=== PATIENT | female | born 1960 | race Caucasian/White ===

== ENCOUNTER 2023-04-07 10:23 | Emergency (ER) | payer BC, SELFPAY ==
--- NOTE | ~2023-04-07 | CT_ITS ---
EXAMINATION: CT HEAD WITHOUT CONTRAST CLINICAL INFORMATION: 62-year-old female with dizziness COMPARISON: None available. TECHNIQUE: Contiguous axial imaging was performed from the skull base to vertex without intravenous administration of contrast. This CT examination was performed using dose optimization techniques as appropriate, variously including the following: *Automated exposure control *Adjustment of mA and/or kV according to patient size (this includes techniques or standardized protocols for targeted exams where dose is matched to indication/reason for exam; i.e. extremities or head) *Use of iterative reconstruction technique DLP: 544 mGy-cm FINDINGS: TECHNIQUE: CT imaging of the head was performed without contrast material. FINDINGS: Unenhanced examination demonstrates the cortical sulci and ventricular system to be appropriate in size and morphology for the patient's age. No focal area of abnormal attenuation within the brain parenchyma is appreciated. No mass effect, midline shift, or intracranial hemorrhage is seen. No abnormal extra-axial fluid collection is noted. The incidentally visualized portions of the orbits and paranasal sinuses appear unremarkable. CT/CT head/brain wo IV con IMPRESSION: Normal examination.
[2023-04-07 10:27] VITALS: BP 154/93; PULSE 89; RESP 18; TEMP 37.1; O2SAT 96; BMI 25.0
--- NOTE | 2023-04-07 10:40 | ECG_ITS ---
Test Reason : dizzy Blood Pressure : / mmHG Vent. Rate : 077 BPM Atrial Rate : 077 BPM P-R Int : 198 ms QRS Dur : 056 ms QT Int : 362 ms P-R-T Axes : 078 004 024 degrees QTc Int : 409 ms Normal sinus rhythm Low voltage QRS Nonspecific T wave abnormality Abnormal ECG No previous ECGs available Referred By: Generic ED Physician Electronically Signed By:HARVEY BELTRAN
[2023-04-07 11:01] LABS: MANUAL DIFF FLAG NO
[2023-04-07 11:04] LABS: Basophils Absolute Auto 0.1 X10*3/uL (0.0-0.2); Basophils Percent Auto 0.7 % (0-2); Eosinophils Absolute Auto 0.1 X10*3/uL (0.0-0.4); Eosinophils Percent Auto 1.6 % (0-4); Hematocrit 42.2 % (37.0-47.0); Hemoglobin 14.5 g/dl (12.0-16.0); Imm Gran Abs Auto 0.01 X10*3/uL (0.00-0.03); Imm Gran Pct Auto 0.1 % (0.0-0.4); Lymphocytes Absolute Auto 1.4 X10*3/uL (1.2-4.9); Lymphocytes Percent Auto 18.5 % (20-40); Mean Corpuscular HGB Conc 34.4 g/dl (31.0-35.0); Mean Corpuscular Hemoglobin 31.9 pg (27.0-33.0); Mean Platelet Volume 9.4 fL (9.4-12.3); Monocytes Absolute Auto 0.7 X10*3/uL (0.1-1.2); Monocytes Percent Auto 8.6 % (2-11); Neutrophils Absolute Auto 5.3 x10*3/uL (2.0-8.3); Neutrophils Percent Auto 70.5 % (45-73); Platelet Count 295 X10*3/uL (160-400); Red Blood Count 4.54 X10*6/uL (4.20-5.50); Red Cell Distribution Width 13.2 % (11.0-16.0); White Blood Count 7.6 X10*3/uL (4.8-10.8)
--- NOTE | 2023-04-07 11:05 | ED_ITS ---
HPI - Dizziness General Chief Complaint: Dizziness Stated Complaint: dizzy, off balance Time Seen by Provider: 04/07/23 10:59 Source: patient Mode of arrival: ambulatory Limitations: no limitations History of Present Illness HPI Narrative: This is a 62-year-old female with no significant medical history presenting to the emergency department with complaints of dizziness/feeling off balance since last night after dinner. Patient reports that this dizziness is worse with positional changes and is making her ambulation very difficult, she feels like she is walking on an escalator and the room is spinning . Patient has also been having some left ear discomfort and tinnitus. She denies headache, vision changes, weakness, nausea, vomiting, abdominal pain, trauma to head or neck, chest pain, shortness of breath, fevers, chills or recent illness. Related Data Previous Rx's Medication Instructions Recorded meclizine 25 mg tablet 25 mg PO DAILY PRN dizziness #14 04/07/23 tabs Allergies Allergy/AdvReac Type Severity Reaction Status Date / Time azithromycin Allergy Vomiting Verified 04/07/23 10:31 latex Allergy Rash Verified 04/07/23 10:31 peanut Allergy Swelling Verified 04/07/23 10:31 strawberry Allergy Hives Verified 04/07/23 10:31 Sulfa (Sulfonamide Allergy Vomiting Verified 04/07/23 10:31 Antibiotics) grains Allergy Swelling Uncoded 04/07/23 10:31 Review of Systems 2 Review of Systems: Yes all other systems are reviewed and are negative [facility] Past Medical History Attestation statement: The following information was validated with the patient. Source: old records reviewed and nursing notes reviewed Social History Social History Advance Directives: No Advance Directives Information Provided: Yes Physical Exam 2 Vital Signs: Vital Signs: Last Vital Signs Temp 97.8 F 04/07/23 12:58 Pulse 61 04/07/23 12:58 Resp 16 04/07/23 12:58 BP 130/75 04/07/23 12:58 Pulse Ox 98 04/07/23 12:58 O2 Del Method Room Air 04/07/23 12:58 BMI result Body Mass Index 25.0 vss Appearance: Alert.? Oriented X3.? No acute distress.? Head: Normocephalic, atraumatic, no step-offs or deformities Eyes: Pupils equal, round and reactive to light.? Rapid head movements to the left and right cause horizontal nystagmus ENT: Pharynx normal.? Bilateral tympanic membranes and ear canal within normal limits. No mastoid tenderness. No pain with manipulation of external ear bilaterally. Neck: Normal inspection.? Neck supple.? CVS: Normal heart rate and rhythm.? Pulses normal.? Respiratory: No respiratory distress.? Breath sounds normal.? Abdomen: Soft and nontender.? Skin: Skin warm and dry.? Normal skin color.? Normal skin turgor.? Extremities: No lower extremity edema.? No calf ttp. 5/5 strength to bilateral upper and lower extremities. Normal hand entry level paralegal. Neuro: Oriented X 3.? No motor deficit.? No sensory deficit. CN 2-12 intact . Normal zoypea-pa-rjmc, ydmk-oh-rvfs steady tandem gait normal coordination. Negative Romberg and pronator drift. NIH stroke scale 0 Course Reevaluation(s) Reevaluation #1: CBC no acute findings. Chemistry unremarkable. Troponin negative, EKG nonischemic. Head scan pending. Time: 11:34 Reevaluation #2: Head CT unremarkable. Patient feeling much better after IV fluids, meclizine. Ambulating with steady gait normal coordination. Repeat neurological assessment nonfocal. At this time patient to be discharged home will send her home with meclizine Educated patient on diagnosis and treatment plan, answered all question, patient verbalizes understanding. At this time patient will be discharged home, advised to return with new or worsening symptoms. Educated on worrisome signs and symptoms and when to return. At this time I feel comfortable discharge home. Time: 14:46 Medications Administered Discontinued Medications Generic Name Dose Route Start Last Admin Trade Name Freq PRN Reason Stop Dose Admin Sodium Chloride 1,000 mls @ 999 mls/hr 04/07/23 11:15 04/07/23 12:26 Ns IV 04/07/23 12:15 Infused .Q1H1M KASSI Infusion Meclizine HCl 25 mg 04/07/23 11:04 04/07/23 11:22 Meclizine Hcl 25 Mg Tablet PO 04/07/23 11:05 25 mg ONCE ONE Administration Medical Decision Making Medical Decision Making MDM Narrative: 62-year-old female presents for evaluation of feeling off balance and disease since yesterday night. This has never happened to her before. Also having some left ear discomfort and tinnitus. On physical exam head movements do cause horizontal nystagmus bilaterally. No vertical nystagmus noted. Neuro nonfocal cerebellar intact. History and physical exam concerning for BPPV versus vertigo vs meniers disease . No focal deficits no visual disturbances no nausea, vomiting, unlikely posterior stroke. Will rule out metabolic derangements. No signs of otitis media, otitis externa mastoiditis. No signs of meningitis or encephalitis [place]-Hallpike maneuver positive with horizontal nystagmus The Zhou maneuver was performed with patient consent. Patient tolerated procedure well. Now sitting upright. Plan labs, imaging of head as she has no history of this. Differential Diagnosis Differential Diagnoses: The differential diagnosis associated with the presentation includes History and physical exam concerning for BPPV versus vertigo meniers disease .. No focal deficits no visual disturbances no nausea, vomiting, unlikely posterior stroke. Will rule out metabolic derangements. No signs of otitis media, otitis externa mastoiditis. No signs of meningitis or encephalitis Admission/Observation Consideration of admission/observation: Escalation of care including admission/observation considered Unlikely Lab Data MDM Lab Attestation statement: I reviewed the patient's lab results. 04/07/23 10:47 04/07/23 10:52 Labs: Lab Results 04/07/23 04/07/23 Range/Units 10:47 10:52 WBC 7.6 (4.8-10.8) X10*3/uL RBC 4.54 (4.20-5.50) X10*6/uL Hgb 14.5 (12.0-16.0) g/dl Hct 42.2 (37.0-47.0) % MCV 93.0 (80.0-98.0) fL MCH 31.9 (27.0-33.0) pg MCHC 34.4 (31.0-35.0) g/dl RDW 13.2 (11.0-16.0) % Plt Count 295 (160-400) X10*3/uL MPV 9.4 (9.4-12.3) fL Immature Gran % (Auto) 0.1 (0.0-0.4) % Neut % (Auto) 70.5 (45-73) % Lymph % (Auto) 18.5 L (20-40) % [place] % (Auto) 8.6 (2-11) % Eos % (Auto) 1.6 (0-4) % Baso % (Auto) 0.7 (0-2) % Lymph # (Auto) 1.4 (1.2-4.9) X10*3/uL [place] # (Auto) 0.7 (0.1-1.2) X10*3/uL Eos # (Auto) 0.1 (0.0-0.4) X10*3/uL Baso # (Auto) 0.1 (0.0-0.2) X10*3/uL Abs Immat Gran (auto) 0.01 (0.00-0.03) X10*3/uL Absolute Neuts (auto) 5.3 (2.0-8.3) x10*3/uL Absolute Nucleated RBC 0.000 (0.0-0.012) X10*3/uL Nucleated RBC % (auto) 0.0 (0.0-0.2) /100WBC APTT 29.8 (26.0-36.8) SEC Sodium 140 (135-145) mmol/L Potassium 3.5 (3.3-5.1) mmol/L Chloride 106 (96-108) mmol/L Carbon Dioxide 28 (22-29) mmol/L Anion Gap 10 L (12-20) BUN 13 (9-16) mg/dL Creatinine 0.81 (0.5-1.4) mg/dL Estim Creat Clear Calc 64.0 Estimated GFR > 60 Random Glucose 131 H (60-115) mg/dL Calcium 9.7 (8.4-10.2) mg/dL Total Bilirubin 0.5 (0.0-1.0) mg/dL AST 26 (5-31) U/L ALT 16 (0-31) U/L Alkaline Phosphatase 86 (39-117) U/L Troponin I High Sens < 2.7 (<3.5-17.0) ng/L Total Protein 7.4 (6.5-8.0) g/dL Albumin 4.2 (3.5-5.0) g/dL Independent Interpretation I performed an independent interpretation of an: EKG (Vent. Rate : 077 BPM Atrial Rate : 077 BPM P-R Int : 198 ms QRS Dur : 056 ms QT Int : 362 ms P-R-T Axes : 078 004 024 degrees QTc Int : 409 ms Normal sinus rhythm Low voltage QRS Nonspecific T wave abnormality Abnormal ECG No previous ECGs available ) and CT Scan Radiology Impression Discussion of test interpretation with radiology: I have reviewed the radiologist's reading. Tests considered The following testing was considered but not selected: Considered MRI however negative NIH stroke scale cerebellar function intact. History and physical exam most consistent with BPPV unlikely posterior stroke patient without significant risk factors as well. Prescription Management I considered prescription management with: Other (Meclizine) Discharge Plan Discharge Clinical Impression: Benign paroxysmal positional vertigo Patient Disposition: Home, Self-Care Instructions: Vertigo (ED), Benign Paroxysmal Positional Vertigo (ED) Additional Instructions: Take your medications as prescribed. If you were prescribed antibiotics today, it is important that you take your medication to their entirety, do not skip any doses, do not finish them early. Follow-up with your primary care provider this week. Return to the emergency department with new or worsening symptoms. Such as fevers, chills, chest pain, shortness of breath, nausea, vomiting, dizziness, headache, vision changes, lethargy In case of emergency call 911 If symptoms do not improve you should follow-up with your PCP might need vestibular rehab. Your history and physical exam are concerning for vertigo and possible Meniere's disease. CT/CT head/brain wo IV con IMPRESSION: Normal examination. Prescriptions: New meclizine 25 mg tablet 25 mg PO DAILY PRN (Reason: dizziness) Qty: 14 0RF Referrals: Physician,Unknown J [Primary Care Provider] - 2 days Stand Alone Forms: Work/School Release
[2023-04-07 11:15] LABS: Partial Thromboplastin Time 29.8 SEC (26.0-36.8)
[2023-04-07 11:19] LABS: Alanine Aminotransferase 16 U/L (0-31); Albumin Level 4.2 g/dL (3.5-5.0); Alkaline Phosphatase 86 U/L (39-117); Anion Gap 10 (12-20); Aspartate Amino Transferase 26 U/L (5-31); Bilirubin Total 0.5 mg/dL (0.0-1.0); Blood Urea Nitrogen 13 mg/dL (9-16); Calcium 9.7 mg/dL (8.4-10.2); Carbon Dioxide 28 mmol/L (22-29); Chloride 106 mmol/L (96-108); Estimated Glomerular Filt Rate > 60; Glucose Random 131 mg/dL (60-115); Potassium 3.5 mmol/L (3.3-5.1); Sodium 140 mmol/L (135-145); Total Protein 7.4 g/dL (6.5-8.0)
[2023-04-07] MEDS: 0.9 % Sodium Chloride 1,000 ML 999 ML IV (11:22)
[2023-04-07] MEDS: Meclizine HCl 25 MG TABLET PO (11:22)
[2023-04-07 11:27] LABS: Troponin-I High Sensitivity < 2.7 ng/L (<3.5-17.0)
[2023-04-07 12:58] VITALS: BP 130/75; PULSE 61; RESP 16; TEMP 36.6; O2SAT 98
[2023-04-07 15:03] VITALS: BP 162/87; PULSE 70; RESP 18; TEMP 36.9; O2SAT 98
== END 2023-04-07 15:09 | disposition home or self-care (01) ==
PROVIDERS: Emergency Provider Emergency Medicine Emergency Medical Services
DX: H81.10 Benign paroxysmal vertigo, unspecified ear (principal)
CPT/HCPCS: 36415; 70450; 80053; 84484; 85025; 85730; 93005; 96360; 99284

== ENCOUNTER → 2023-04-07 10:40 | Outpatient (BNV) | payer BC, SELFPAY | PROVIDERS: Emergency Provider Emergency Medicine Emergency Medical Services; Visit Provider Internal Medicine | DX: R94.31 Abnormal electrocardiogram [ECG] [EKG] (principal) | CPT/HCPCS: 93010 ==

== ENCOUNTER 2023-11-24 12:21 | Outpatient (REF) | payer BC, SELFPAY ==
--- NOTE | ~2023-11-24 | CT_ITS ---
EXAMINATION: CT ABDOMEN AND PELVIS WITH CONTRAST CLINICAL INFORMATION: Abdominal pain COMPARISON: None available. TECHNIQUE: Multidetector volumetric images were obtained from the superior aspect of the liver through the pubic symphysis following administration 85 mL of Omnipaque 350 intravenous contrast. Sagittal and coronal reformatted images were obtained on the technologist's workstation. Oral contrast: Yes This CT examination was performed using dose optimization techniques as appropriate, variously including the following: *Automated exposure control *Adjustment of mA and/or kV according to patient size (this includes techniques or standardized protocols for targeted exams where dose is matched to indication/reason for exam; i.e. extremities or head) *Use of iterative reconstruction technique DLP: 283 mGy-cm FINDINGS: LUNG BASES: Bibasilar atelectasis. LIVER, GALLBLADDER, AND BILIARY TREE: The liver is normal in size, shape, and attenuation. No focal hepatic lesion or biliary ductal dilatation is present. The gallbladder is unremarkable with no evidence of radiopaque gallstones, gallbladder wall thickening, or obvious pericholecystic inflammatory changes. PANCREAS: There is an elongated region of hypoattenuation in the posterior aspect of the pancreatic head approximately 2.1 x 0.5 cm of uncertain etiology, possibly a dilated duct side branch or cystic lesion. The ducts and pancreas appear otherwise normal. SPLEEN: Unremarkable. ADRENAL GLANDS: Unremarkable. KIDNEYS AND URETERS: There is a 1.1 cm round, smooth hypodensity in the anterior midpole of the left kidney most likely representing a cyst although is measures greater than simple fluid density. The kidneys appear otherwise normal. No hydronephrosis or stones. BLADDER: Unremarkable. GASTROINTESTINAL TRACT: Sigmoid diverticulosis. No focal inflammatory process or obstruction. Normal appendix. ABDOMINAL WALL: No significant hernia is appreciated. LYMPH NODES: Normal. VASCULAR: Mild scattered atherosclerotic calcifications. PELVIC VISCERA: Unremarkable. OSSEOUS STRUCTURES: Unremarkable. CT/CT abdomen pelvis w IV con IMPRESSION: 1. No focal inflammatory process or obstruction. 2. Sigmoid diverticulosis. 3. There is a 2.1 x 0.5 cm elongated region of hypoattenuation in the posterior aspect of the pancreatic head of uncertain etiology, possibly a dilated duct side branch or cystic lesion. This could be further evaluated with MRI/MRCP. 4. There is a 1.1 cm round hypodensity in the anterior midpole of the left kidney most likely representing a cyst although measures greater than simple fluid density. This could be confirmed with ultrasound, or the pancreas MRI/MRCP. Fleischner guidelines were followed. Electronically signed by: David Camp MD 11/26/2023 10:03 AM EDT RP
[2023-11-24] MEDS: Barium Sulfate Oral (Berry) 450 ML ORAL.SUSP 900 ML PO (14:55)
[2023-11-24] MEDS: iohexoL 350 MG/ML 100 ML INFUS..BTL IV (14:56)
[2023-11-27 09:09] LABS: Creatinine POC 0.7 mg/dL (0.5-1.4); GFR POC 60
== END 2023-11-24 12:22 | disposition home or self-care (01) ==
LOC: HO.CT 12:21
PROVIDERS: PCP Nurse Practitioner Family; Visit Provider Nurse Practitioner Adult Health
DX: R10.9 Unspecified abdominal pain (principal)
CPT/HCPCS: 74177; 82565; Q9967

== ENCOUNTER 2023-12-29 08:25 | Outpatient (REF) | payer BC, SELFPAY ==
[2023-12-29] MEDS: gadobutroL 7.5 ML VIAL IVPUSH (09:30)
== END 2023-12-29 08:26 | disposition home or self-care (01) ==
LOC: HO.MRI 08:25
PROVIDERS: PCP Nurse Practitioner Family; Visit Provider Nurse Practitioner Adult Health
DX: N28.1 Cyst of kidney, acquired (principal)
CPT/HCPCS: 74183; A9585

== ENCOUNTER 2024-04-25 07:40 | Emergency (ER) | payer BC, MEDICARE, SELFPAY ==
--- NOTE | ~2024-04-25 | XR_ITS ---
EXAMINATION: XR CHEST CLINICAL INFORMATION: dyspnea COMPARISON: November 23, 2010 is not available on PACS. TECHNIQUE: Frontal view of the chest was obtained. FINDINGS: Pulmonary reticular pattern. Hyperinflated lungs. Bilateral apical lung scarring. Linear and patchy opacity left lower hemithorax. Probable skin fold in the periphery of the left hemithorax. No pleural effusion. Cardiomediastinal silhouette size is normal. Calcified plaque thoracic aortic arch. Mild to moderate S-shaped curvature of the thoracolumbar spine. XR/XR chest 1V IMPRESSION: Chronic interstitial lung disease. Superimposed acute small airway disease in the lingula/left lower lung lobe should be considered in the correct clinical settings. Electronically signed by: Nagi Stokes MD 04/25/2024 08:12 AM EDT
--- NOTE | ~2024-04-25 | CT_ITS ---
EXAMINATION: CT ANGIOGRAM CHEST CLINICAL INFORMATION: Chest pain. Shortness of breath. Elevated d-dimer. Palpitations. COMPARISON: None available. TECHNIQUE: Multiple axial images were obtained through the chest after the administration of 65 mL of Omnipaque 350 intravenous contrast. Extensive vascular post-processing including two-dimensional and three-dimensional reformatted images were created and reviewed on an independent workstation. SmartPrep technique. This CT examination was performed using dose optimization techniques as appropriate, variously including the following: *Automated exposure control *Adjustment of mA and/or kV according to patient size (this includes techniques or standardized protocols for targeted exams where dose is matched to indication/reason for exam; i.e. extremities or head) *Use of iterative reconstruction technique. DLP: 210 mGy centimeter. FINDINGS: The main pulmonary arteries are patent without intraluminal filling defects. Thoracic aorta demonstrates normal caliber and enhancement pattern without intimal flap or focal stenosis. Bilateral apical lung scarring. Focal saccular bronchiectasis in the lingula. Minimal honeycombing in the peripheral lower lung lobes. Patchy and linear attenuation seen in the lower lung lobes, lingula and to a lesser extent right middle lung lobe. There is a 3 mm noncalcified pulmonary nodule in the right middle lung lobe and left lower lung lobe. No pleural effusion. No pneumothorax. Prominent nonspecific mediastinal lymph nodes. No pericardial effusion. There is a pectus excavatum. No dominant nodules in the thyroid gland. There is spondylosis at T11-T12 with mild reverse curvature. No acute fracture or listhesis. No acute rib fractures. The sternum is intact. The scapula is intact bilaterally. CT/CT angio chest PE protocol IMPRESSION: No acute pulmonary artery emboli. No aneurysm or dissection, thoracic aorta. Chronic interstitial lung disease with questionable superimposed acute inflammatory versus infectious processes. Nonspecific 3 mm noncalcified pulmonary nodule, right middle lobe and left lower lung lobe. Fleischner guidelines were followed. Electronically signed by: Nagi Stokes MD 04/25/2024 10:20 AM EDT
--- NOTE | 2024-04-25 07:42 | ECG_ITS ---
Test Reason : RAPID HEART RATE Blood Pressure : */* mmHG Vent. Rate : 83 BPM Atrial Rate : 83 BPM P-R Int : 210 ms QRS Dur : 48 ms QT Int : 340 ms P-R-T Axes : 70 7 38 degrees QTcB Int : 399 ms Sinus rhythm with 1st degree A-V block Possible Left atrial enlargement Cannot rule out Anterior infarct , age undetermined Abnormal ECG When compared with ECG of 07-Apr-2023 10:47, Nonspecific T wave abnormality no longer evident in Anterior leads Referred By: Generic ED Physician Electronically Signed By: Contreras Wilkerson
[2024-04-25 07:52] VITALS: BP 150/79; PULSE 84; RESP 16; TEMP 36.8; O2SAT 99; BMI 23.6
--- NOTE | 2024-04-25 08:01 | ED_ITS ---
HPI - Arrhythmia/Palpitations General Chief Complaint: Arrhythmia/Palpitations Stated Complaint: rapid heart beat Time Seen by Provider: 04/25/24 07:49 Source: patient and old records reviewed Mode of arrival: ambulatory Limitations: no limitations History of Present Illness ED Provider: VENTURA LAMB narrative: 64 yo female with PMH of recurrent UTI, hypothyroidism, HLD recent UTI on macrobid but feels like it isn't helping. This AM was getting ready for work when she felt her heart racing and felt a little short of breath, upset stomach. She had no chest pain. She denies recent travel/procedures. She has not had n/v. She feels better on arrival now. She was not able to check her pulse when it was happening. She is on atenolol complaint: rapid heart beat, heart racing and palpitations Onset (ago): hour(s) (1) Duration: now resolved Severity: moderate Context: occurred during rest Associated symptoms: shortness of breath and nausea Related Data Previous Rx's ?Medication ?Instructions ?Recorded meclizine 25 mg tablet 25 mg PO DAILY PRN dizziness #14 04/07/23 tabs cefuroxime axetil 250 mg tablet 250 mg PO BID 5 days #10 tabs 04/25/24 Allergies Allergy/AdvReac Type Severity Reaction Status Date / Time azithromycin Allergy Vomiting Verified 04/25/24 07:53 latex Allergy Rash Verified 04/25/24 07:53 peanut Allergy Swelling Verified 04/25/24 07:53 strawberry Allergy Hives Verified 04/25/24 07:53 Sulfa (Sulfonamide Allergy Vomiting Verified 04/25/24 07:53 Antibiotics) grains Allergy Swelling Uncoded 04/07/23 10:31 Review of Systems 2 Review of Systems: Constitutional : No Fever, No Chills ENT/Mouth : No sore throat, No Rhinorrhea, No Swallowing Difficulty Eyes: No Eye Pain, No Swelling, No Redness Cardiovascular : No Chest Pain, positive SOB, No Orthopnea, noEdema Respiratory : No Cough, No Sputum, No Wheezing, positive dyspnea Gastrointestinal : pos Nausea, No Vomiting, No Diarrhea, pos abdominal Pain, No Hematochezia, No Melena Genitourinary : No Dysuria, No Urinary Frequency, No Hematuria Musculoskeletal : No joint pain, No Myalgias Skin : No Skin Lesions, No rash Neuro : No Weakness, No Numbness, No Dizziness, No Headache All other systems reviewed and are negative [facility] Past Medical History Attestation statement: The following information was validated with the patient. Source: old records reviewed Medical History Hypothyroidism Hyperlipidemia UTI (urinary tract infection) Social History Social History (Updated 04/25/24 @ 08:03 by Rena Crowder DO) Patient Tobacco Use Status: Never used Tobacco Advance Directives: No Advance Directives Information Provided: Yes Physical Exam 2 Vital Signs: Vital Signs: Last Vital Signs Temp 98.2 F 04/25/24 07:52 Pulse 68 04/25/24 10:09 Resp 17 04/25/24 10:09 BP 140/68 H 04/25/24 10:09 Pulse Ox 97 04/25/24 10:09 O2 Del Method Room Air 04/25/24 10:09 BMI result Body Mass Index 23.6 Appearance: Alert. Oriented X3. No acute distress. Anxious Eyes: Pupils equal, round and reactive to light. ENT: Pharynx normal. Neck: Normal inspection. Neck supple. CVS: Normal heart rate and rhythm. Pulses normal. Respiratory: No respiratory distress. Breath sounds normal. Abdomen: Soft and nontender. Skin: Skin warm and dry. Normal skin color. Normal skin turgor. Extremities: No lower extremity edema. No calf ttp Neuro: Oriented X 3. No motor deficit. No sensory deficit. CN2-12 intact Medications Administered Discontinued Medications Generic Name Dose Route Start Last Admin Trade Name Freq PRN Reason Stop Dose Admin Iohexol 100 ml 04/25/24 09:19 04/25/24 09:20 Iohexol 350 Mg/Ml 100 Ml Infus..Btl IV 04/25/24 09:20 65 ml ONCE ONE Administration Medical Decision Making Medical Decision Making MDM Narrative: 64 yo female with PMH of recurrent UTI, hypothyroidism, HLD recent UTI on macrobid here with c/o palpitations, nausea, upper abdominal discomfort - she is not toxic, pulses intact EKG no ischemia - will obtain labs, lytes, TSH, ddimer - CXR. Will monitor on tele Differential Diagnosis Differential Diagnoses: The differential diagnosis associated with the presentation includes lyte abnormality, thyroid ds, med reaction Admission/Observation Consideration of admission/observation: Escalation of care including admission/observation considered trop flat x 2, CTA negative at this time will switch to ceftin stable for DC no events on tele Lab Data MDM Lab Attestation statement: I reviewed the patient's lab results. 04/25/24 08:13 04/25/24 08:13 Labs: Lab Results 04/25/24 04/25/24 04/25/24 Range/Units 08:13 08:23 10:08 WBC 11.5 H (4.8-10.8) X10*3/uL RBC 4.38 (4.20-5.50) X10*6/uL Hgb 14.0 (12.0-16.0) g/dl Hct 39.5 (37.0-47.0) % MCV 90.2 (80.0-98.0) fL MCH 32.0 (27.0-33.0) pg MCHC 35.4 H (31.0-35.0) g/dl RDW 13.2 (11.0-16.0) % Plt Count 283 (160-400) X10*3/uL MPV 9.2 L (9.4-12.3) fL Immature Gran % (Auto) 0.4 (0.0-0.4) % Neut % (Auto) 80.0 H (45-73) % Lymph % (Auto) 8.1 L (20-40) % [place] % (Auto) 7.6 (2-11) % Eos % (Auto) 3.6 (0-4) % Baso % (Auto) 0.3 (0-2) % Lymph # (Auto) 0.9 L (1.2-4.9) X10*3/uL [place] # (Auto) 0.9 (0.1-1.2) X10*3/uL Eos # (Auto) 0.4 (0.0-0.4) X10*3/uL Baso # (Auto) 0.0 (0.0-0.2) X10*3/uL Abs Immat Gran (auto) 0.05 H (0.00-0.03) X10*3/uL Absolute Neuts (auto) 9.2 H (2.0-8.3) x10*3/uL Absolute Nucleated RBC 0.000 (0.0-0.012) X10*3/uL Nucleated RBC % (auto) 0.0 (0.0-0.2) /100WBC D-Dimer High Sensitivty 451 NG/ML Sodium 138 (135-145) mmol/L Potassium 3.7 (3.3-5.1) mmol/L Chloride 106 (96-108) mmol/L Carbon Dioxide 26 (22-29) mmol/L Anion Gap 10 L (12-20) BUN 12 (9-16) mg/dL Creatinine 0.74 (0.5-1.4) mg/dL Estim Creat Clear Calc 65.4 Estimated GFR > 60 Random Glucose 98 (60-115) mg/dL Calcium 9.2 (8.4-10.2) mg/dL Magnesium 1.9 (1.6-2.6) mg/dL Total Bilirubin 0.4 (0.0-1.0) mg/dL Direct Bilirubin 0.2 (0.0-0.5) mg/dL AST 28 (5-31) U/L ALT 15 (0-31) U/L Alkaline Phosphatase 95 (39-117) U/L Troponin I High Sens < 2.7 < 2.7 (<3.5-17.0) ng/L B-Natriuretic Peptide 76 (<100) pg/mL Total Protein 7.5 (6.5-8.0) g/dL Albumin 3.9 (3.5-5.0) g/dL Lipase 20 (8-78) U/L TSH 8.53 H (0.32-4.0) uIU/mL Free T4 1.13 (0.71-1.85) ng/dL Urine Color Yellow Urine Appearance Clear Urine pH 7.0 (5.0-9.0) Ur Specific [place] <= 1.005 (1.005-1.025) Urine Protein Negative (Neg-Trace) mg/dL Urine Glucose (UA) Negative (Negative) mg/dL Urine Ketones Negative (Negative) mg/dL Urine Blood Negative (Negative) Urine Nitrite Negative (Negative) Ur Leukocyte Esterase Trace H (Negative) Urine RBC 0-2 (0-2) /HPF Urine WBC 0-5 (0-5) /HPF Ur Squamous Epith Cells 3-5 (0-2) /HPF Urine Bacteria None Seen (None Seen) Hyaline Casts 0-2 (0-2) /LPF Influenza Type A (PCR) NEGATIVE (Negative) Influenza Type B (PCR) NEGATIVE (Negative) RSV RNA Qual (PCR) NEGATIVE (Negative) SARS-CoV-2 RNA (RT-PCR) NEGATIVE (Negative) Independent Interpretation I performed an independent interpretation of an: EKG, Plain X-Ray and CT Scan (no VTE) Interpretation: Rate: 83 Rhythm: NSR 1st degree AVB [place]: normal Normal P waves. 1st degree AVB Normal QRS complex. ST T wave : no SURAJ, inverted t waves III qTC: 399 prior studies: no acute ischemia The study has been interpreted contemporaneously by me. . Radiology Impression Discussion of test interpretation with radiology: I have reviewed the radiologist's reading. External Record Review External record reviewed: Outpatient record Discharge Plan Discharge Clinical Impression: Palpitations Patient Disposition: Home, Self-Care Instructions: Heart Palpitations (ED) Additional Instructions: labs reassuring TSH 8 but T4 normal - have your doctor repeat in one week repeat heart tests normal, no acute findings on EKG CT scan no mass/aneurysm/blood clot stop the macrobid and start ceftin for 5 days please return for any worsening symptoms or concerns. Prescriptions: New cefuroxime axetil 250 mg tablet 250 mg PO BID 5 Days Qty: 10 0RF No Action meclizine 25 mg tablet 25 mg PO DAILY PRN (Reason: dizziness) Qty: 14 0RF Stand Alone Forms: Work/School Release Print Language: Sami
[2024-04-25 08:18] LABS: MANUAL DIFF FLAG NO
[2024-04-25 08:26] LABS: Basophils Percent Auto 0.3 % (0-2); Eosinophils Absolute Auto 0.4 X10*3/uL (0.0-0.4); Eosinophils Percent Auto 3.6 % (0-4); Hematocrit 39.5 % (37.0-47.0); Imm Gran Abs Auto 0.05 X10*3/uL (0.00-0.03); Imm Gran Pct Auto 0.4 % (0.0-0.4); Lymphocytes Absolute Auto 0.9 X10*3/uL (1.2-4.9); Lymphocytes Percent Auto 8.1 % (20-40); Mean Corpuscular HGB Conc 35.4 g/dl (31.0-35.0); Mean Corpuscular Volume 90.2 fL (80.0-98.0); Mean Platelet Volume 9.2 fL (9.4-12.3); Monocytes Absolute Auto 0.9 X10*3/uL (0.1-1.2); Monocytes Percent Auto 7.6 % (2-11); Neutrophils Absolute Auto 9.2 x10*3/uL (2.0-8.3); Platelet Count 283 X10*3/uL (160-400); Red Blood Count 4.38 X10*6/uL (4.20-5.50); Red Cell Distribution Width 13.2 % (11.0-16.0); White Blood Count 11.5 X10*3/uL (4.8-10.8)
[2024-04-25 08:33] LABS: Appearance Urine Clear; Color Urine Yellow; Glucose Urine UA Negative (Negative); Leukocyte Esterase Urine Trace (Negative); Nitrite Urine Negative (Negative); Specific Gravity - Urine <= 1.005 (1.005-1.025); UMIC TRIGGER UACC YES; Urine Blood Negative (Negative); Urine Ketones Negative (Negative); Urine Protein Negative (Neg-Trace)
[2024-04-25 08:35] LABS: D Dimer High Sensitivity 451 NG/ML
[2024-04-25 08:38] LABS: Bacteria Urine None Seen (None Seen); Hyaline Casts Urine 0-2 /LPF (0-2); RBC Urine 0-2 /HPF (0-2); WBC Urine 0-5 /HPF (0-5)
[2024-04-25 08:45] LABS: Alanine Aminotransferase 15 U/L (0-31); Albumin Level 3.9 g/dL (3.5-5.0); Alkaline Phosphatase 95 U/L (39-117); Anion Gap 10 (12-20); Aspartate Amino Transferase 28 U/L (5-31); Bilirubin Direct 0.2 mg/dL (0.0-0.5); Bilirubin Total 0.4 mg/dL (0.0-1.0); Blood Urea Nitrogen 12 mg/dL (9-16); Calcium 9.2 mg/dL (8.4-10.2); Carbon Dioxide 26 mmol/L (22-29); Chloride 106 mmol/L (96-108); Creatinine Clr Calc Pharmacy 65.4; Estimated Glomerular Filt Rate > 60; Glucose Random 98 mg/dL (60-115); Lipase 20 U/L (8-78); Magnesium 1.9 mg/dL (1.6-2.6); Potassium 3.7 mmol/L (3.3-5.1); Sodium 138 mmol/L (135-145); Total Protein 7.5 g/dL (6.5-8.0)
[2024-04-25 08:48] LABS: Troponin-I High Sensitivity < 2.7 ng/L (<3.5-17.0)
[2024-04-25 08:59] LABS: TSH reflex Free T4 8.53 uIU/mL (0.32-4.0)
[2024-04-25 09:00] LABS: Influenza A PCR NEGATIVE (Negative); Influenza B PCR NEGATIVE (Negative); Resp Syncy Virus RNA Qual PCR NEGATIVE (Negative); SARS COV2 PCR INHOUSE NEGATIVE (Negative)
[2024-04-25 09:12] LABS: B Type Natriuretic Peptide 76 pg/mL (<100)
[2024-04-25] MEDS: iohexoL 350 MG/ML 100 ML INFUS..BTL IV (09:20)
[2024-04-25 09:39] LABS: Free T4 (Free Thyroxine) 1.13 ng/dL (0.71-1.85)
[2024-04-25 10:09] VITALS: BP 140/68; PULSE 68; RESP 17; O2SAT 97
[2024-04-25 10:41] LABS: Troponin-I High Sensitivity < 2.7 ng/L (<3.5-17.0)
[2024-04-25 11:03] VITALS: BP 140/68; PULSE 68; RESP 17; TEMP 36.7; O2SAT 97
== END 2024-04-25 11:05 | disposition home or self-care (01) ==
PROVIDERS: Emergency Provider Emergency Medicine; PCP Nurse Practitioner Family
DX: R00.2 Palpitations (principal); R06.02 Shortness of breath; R11.0 Nausea; E78.5 Hyperlipidemia, unspecified; E03.9 Hypothyroidism, unspecified; Z03.818 Encounter for observation for suspected exposure to other biological agents ruled out
CPT/HCPCS: 0241U; 36415; 71045; 71275; 80048; 80076; 81001; 83690; 83735; 83880; 84439; 84443; 84484; 85025; 85379; 93005; 99284; Q9967

== ENCOUNTER → 2024-04-25 07:42 | Outpatient (BNV) | payer BC, MEDICARE, SELFPAY | PROVIDERS: Emergency Provider Emergency Medicine; PCP Nurse Practitioner Family; Visit Provider Internal Medicine Cardiovascular Disease | DX: I44.0 Atrioventricular block, first degree (principal) | CPT/HCPCS: 93010 ==

== ENCOUNTER → 2024-04-25 07:58 | Outpatient (BNV) | payer BC, MEDICARE, SELFPAY | PROVIDERS: Emergency Provider Emergency Medicine; PCP Nurse Practitioner Family; Visit Provider Radiology Diagnostic Radiology | DX: R00.0 Tachycardia, unspecified (principal); R07.9 Chest pain, unspecified; R06.00 Dyspnea, unspecified | CPT/HCPCS: 71045; 71275 ==

== ENCOUNTER → 2024-08-07 14:46 | Outpatient (BNV) | payer BC, MEDICARE, SELFPAY | PROVIDERS: Visit Provider Radiology Diagnostic Radiology | DX: K86.2 Cyst of pancreas (principal) | CPT/HCPCS: 74183 ==

== ENCOUNTER 2024-08-07 15:39 | Outpatient (REF) | payer BC, MEDICARE, SELFPAY ==
--- NOTE | ~2024-08-07 | MR_ITS ---
EXAMINATION: MR ABDOMEN WITHOUT THEN WITH IV CONTRAST HISTORY: 6 MO F/U PANCREATIC MASS COMPARISON: Comparison is made with the prior examination dated 12/29/2023. TECHNIQUE: Axial in and out of phase T1-weighted gradient echo, axial diffusion weighted, and axial and coronal HASTE T2 with fat saturation images were obtained through the abdomen. Subsequently, fat suppressed axial and coronal T1-weighted images were obtained after the intravenous administration of 6 mL Gadavist. FINDINGS: The examination is limited by patient motion. Liver: There is no loss of signal intensity in the liver on opposed phase imaging to suggest steatosis. There is no enhancing liver mass. The hepatic and portal veins are patent. There is no intra- or extrahepatic biliary dilatation. No intraluminal filling defects are identified within the common bile duct to suggest choledocholithiasis. Gallbladder: No gallstones are identified. Spleen: The spleen is unremarkable. Pancreas: Again seen is a multi septated cystic lesion of the uncinate process of the pancreas measuring approximately 2.1 x 0.5 x 1.2 cm, without significant change from the prior study. There is no enhancing component. The pancreatic duct is normal in caliber. Adrenals: The adrenal glands are unremarkable. Kidneys: There is a 1.2 cm cyst in the interpolar region of the left kidney. The kidneys are otherwise unremarkable. There is no hydronephrosis. Lymph nodes: There is no retroperitoneal lymphadenopathy in the upper abdomen. Fluid: There is no ascites in the upper abdomen. Visualized bowel: The visualized bowels loops are unremarkable in appearance. Visualized bones: The visualized bones demonstrate normal marrow signal intensity. MR/MR abdomen wo/w con IMPRESSION: Limited examination due to patient motion. Stable 2.1 x 1.5 x 1.2 cm multiseptated cystic lesion in the uncinate process of the pancreas. Continued follow-up is recommended. Electronically signed by: Andrew Kelly MD 08/08/2024 07:45 AM EDT
== END 2024-08-07 15:40 | disposition home or self-care (01) ==
LOC: HO.MRI 15:39
PROVIDERS: Visit Provider Nurse Practitioner Family
DX: K86.2 Cyst of pancreas (principal)
CPT/HCPCS: 74183; A9585

== ENCOUNTER 2024-11-29 10:18 | Emergency (ER) | payer BC, SELFPAY ==
--- NOTE | ~2024-11-29 | XR_ITS ---
EXAMINATION: XR CHEST CLINICAL INFORMATION: cough, COVID +, r/o PNA COMPARISON: 04/25/2024. TECHNIQUE: 2 views of the chest were obtained. FINDINGS: The cardiac, hilar, and mediastinal contours are normal. Lungs demonstrate patchy peribronchial opacities in the right base, and left mid and lower lung. There is evidence for small airway thickening. Findings are in keeping with multifocal/atypical pneumonia. There is biapical pleural parenchymal scarring. There is no pneumothorax or pleural effusion. There is no focal osseous or soft tissue abnormality. There is a pectus excavatum. XR/XR chest 2V IMPRESSION: Multifocal peribronchial opacities with peribronchial thickening in both lungs in keeping with atypical pneumonia. Electronically signed by: Kiran Cotter MD 11/29/2024 11:08 AM EDT
--- NOTE | 2024-11-29 10:21 | ECG_ITS ---
Test Reason : chest pain Blood Pressure : */* mmHG Vent. Rate : 102 BPM Atrial Rate : 102 BPM P-R Int : 178 ms QRS Dur : 58 ms QT Int : 338 ms P-R-T Axes : 15 16 -8 degrees QTcB Int : 440 ms Sinus tachycardia Nonspecific T wave abnormality Abnormal ECG When compared with ECG of 25-Apr-2024 07:45, NC interval has decreased T wave inversion more evident in Inferior leads Nonspecific T wave abnormality now evident in Lateral leads Referred By: Generic ED Physician Electronically Signed By: LOGAN VANCE MD
[2024-11-29 10:40] VITALS: BP 136/78; PULSE 97; RESP 18; TEMP 36.7; O2SAT 96; BMI 22.2
--- NOTE | 2024-11-29 10:40 | ED.GENADULT ---
HPI - General Adult General Chief complaint: Upper Respiratory Symptoms Stated complaint: Chest Pain Time Seen by Provider: 11/29/24 11:33 Source: patient Mode of arrival: ambulatory Limitations: no limitations History of Present Illness ED Provider: Luci Hsieh APRN HPI narrative: 64 yo female with PMH recurrent UTI, hypothyroidism, HLD here with URI symptoms x 6 days, now having chest discomfort with breathing/coughing. Tested positive for COVID on Monday. Initially had fever, now resolved. Dry cough. No SOB, leg swelling/leg pain, vomiting, diarrhea, skin rash, neck pain/stiffness. Related Data Previous Rx's ?Medication ?Instructions ?Recorded meclizine 25 mg tablet 25 mg PO DAILY PRN dizziness #14 04/07/23 tabs cefuroxime axetil 250 mg tablet 250 mg PO BID 5 days #10 tabs 04/25/24 amoxicillin 875 mg-potassium 1 tab PO BID #14 tabs 11/29/24 clavulanate 125 mg tablet benzonatate 200 mg capsule 200 mg PO TID PRN cough #21 caps 11/29/24 Allergies Allergy/AdvReac Type Severity Reaction Status Date / Time azithromycin Allergy Vomiting Verified 11/29/24 10:43 latex Allergy Rash Verified 11/29/24 10:43 peanut Allergy Swelling Verified 11/29/24 10:43 strawberry Allergy Hives Verified 11/29/24 10:43 Sulfa (Sulfonamide Allergy Vomiting Verified 11/29/24 10:43 Antibiotics) grains Allergy Swelling Uncoded 04/07/23 10:31 Review of Systems Review of Systems: Yes all other systems are reviewed and are negative Constitutional: Constitutional: Reports no additional constitutional complaints, Denies body ache(s), Denies chills, Denies fever(s), Denies headache(s) and Denies weakness Eyes: Eyes: Reports no additional eye complaints and Denies change in vision ENT: Reports system reviewed and no additional complaints, except as documented, Denies dizziness, Denies headache(s), Denies nasal congestion, Denies nasal discharge and Denies neck pain Cardiovascular: Cardiovascular: Reports no additional cardiovascular complaints, Reports chest pain, Denies leg edema and Denies dyspnea Respiratory: Respiratory: Reports no additional respiratory complaints, Reports cough and Denies dyspnea Gastrointestinal: Gastrointestinal: Reports no additional gastrointestinal complaints, Denies abdominal pain, Denies diarrhea, Denies nausea and Denies vomiting Genitourinary: Genitourinary: Reports no additional female genitourinary complaints and Denies urinary incontinence Musculoskeletal: Musculoskeletal: Reports no additional musculoskeletal complaints, Denies back pain, Denies arthralgias, Denies joint swelling, Denies neck pain, Denies numbness and Denies tingling Integumentary/Breasts: Skin/Breast: Reports system reviewed and no additional complaints, except as docu and Denies rash Neurologic: Reports system reviewed and no additional complaints, except as documented, Denies Abnormal speech present, Denies dizziness, Denies headache(s), Denies numbness, Denies tingling and Denies weakness PMFSH Past Medical History Attestation statement: The following information was validated with the patient. Source: old records reviewed and nursing notes reviewed Medical History Hypothyroidism Hyperlipidemia UTI (urinary tract infection) Social History Social History Patient Tobacco Use Status: Never used Tobacco Advance Directives: Yes Advance Directives Information Provided: Yes Advance Directives on File: No Physical Exam ED Vital Signs: Vital Signs - 24 hr 11/29/24 10:40 11/29/24 11:58 Temperature 98.1 F 98.1 F Pulse Rate 97 97 Respiratory Rate 18 18 Blood Pressure 136/78 136/78 Pulse Oximetry 96 96 Oxygen Delivery Method Room Air Room Air BMI result Body Mass Index 22.2 Const General: cooperative, healthy appearing, comfortable and no acute distress Orientation/consciousness: patient oriented x3 Limitations: no limitations [facility] Head: Yes normal to inspection Ears: hearing grossly normal bilaterally General nose exam: Normal external nose present Face and sinus: Yes normal facial exam Mouth: Normal oral and palatal mucosa present Throat: Yes posterior oropharynx normal Eyes General: appearance normal, both eyes and all related structures Pupils: Equal, round and reactive pupils present Neck Neck: Yes normal visual inspection Chest Chest palpation & inspection: normal inspection of the chest Resp Effort & Inspection: normal respiratory effort Auscultation: clear to auscultation bilaterally Cardio Rate: regular rate Rhythm: regular rhythm Peripheral pulses: Peripheral pulses 2+ throughout GI Inspection: Yes normal to inspection Palpation (GI): Soft to palpation and nontender Auscultation: normal bowel sounds Back/Spine/Pelvis Thoracic/Lumbar Spine: thoracic and lumbar spine normal to inspection Skin General skin exam: no rashes or lesions noted Neuro General: patient oriented x3, no focal motor deficits and normal sensation to monofilament Cranial nerves: Yes Equal, round and reactive pupils present Cognition (Neuro): normal cognition Speech: No Abnormal speech present Gait exam (Neuro): Normal gait present Motor exam (neuro): 5/5 motor strength present throughout Extrem General: Yes normal to inspection, Yes no calf tenderness and Yes normal gait Course Course Course Narrative: 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 Tested positive for COVID on Monday. Initially had fever, now resolved. Had EKG in triage. Will obtain viral testing, CXR. VSS Reevaluation(s) Reevaluation #1: X-ray shows atypical pneumonia. Patient is not hypoxic or tachypneic. She is not requiring supplemental oxygen. She is not toxic appearing. Her lungs are clear. I will discharge her home with the oral antibiotic. She does have albuterol home that she uses and she does not need refill. Recommend that she use a spacer for this. Recommend continue supportive measures at home. Reviewed worrisome signs and symptoms of when to return to the emergency room. Comfortable plan for discharge home. Medical Decision Making Medical Decision Making [facility] Narrative: 64 yo female with PMH recurrent UTI, hypothyroidism, HLD here with URI symptoms x 6 days, now having chest discomfort with breathing/coughing. Tested positive for COVID on Monday. Initially had fever, now resolved. Dry cough. No SOB, leg swelling/leg pain, vomiting, diarrhea, skin rash, neck pain/stiffness. Vitals are stable Lungs are clear Will obtain EKG, chest x-ray and viral testing Differential Diagnosis Differential Diagnoses: The differential diagnosis associated with the presentation includes Pneumonia Low suspicion for ACS with unremarkable EKG, symptoms atypical for ACS Low suspicion for PE-no hypoxia, no tachypnea, no tachycardia, no clinical findings concerning for DVT or PE Admission/Observation Consideration of admission/observation: Escalation of care including admission/observation considered Pneumonia with no hypoxia or tachypnea requiring supplemental oxygen and or admission Lab Data [facility] Lab Attestation statement: I reviewed the patient's lab results. Labs: Lab Results 11/29/24 Range/Units 11:06 COVID-19 ([facility]) Negative (Negative) COVID-19 Clin Com See Note Influenza Type A ([facility]) Negative (Negative) Influenza Type B ([facility]) Negative (Negative) Influenza A & B Note See Note Independent Interpretation I performed an independent interpretation of an: Plain X-Ray Interpretation: I independently viewed the x-ray and agree with the radiology report I independently viewed the EKG which shows sinus tachycardia with a rate of 102, normal [place], normal QRS normal QT Radiology Impression Discussion of test interpretation with radiology: I have reviewed the radiologist's reading. Radiologist Impression: [address] [address] XRay Report Signed Patient: Radha Harrell MR#: [id number] : 1960 Acct:[id number] Age/Sex: 64 / F ADM Date: 11/29/24 Loc: .ED Attending Dr: Ordering Physician: Luci Hsieh NP Date of Service: 11/29/24 Procedure(s): XR chest 2V Accession Number(s): [id number] cc: Nicanor Miles MD; Luci Hsieh NP~ Reason for Exam: cough, COVID +, r/o PNA EXAMINATION: XR CHEST CLINICAL INFORMATION: cough, COVID +, r/o PNA COMPARISON: 04/25/2024. TECHNIQUE: 2 views of the chest were obtained. FINDINGS: The cardiac, hilar, and mediastinal contours are normal. Lungs demonstrate patchy peribronchial opacities in the right base, and left mid and lower lung. There is evidence for small airway thickening. Findings are in keeping with multifocal/atypical pneumonia. There is biapical pleural parenchymal scarring. There is no pneumothorax or pleural effusion. There is no focal osseous or soft tissue abnormality. There is a pectus excavatum. XR/XR chest 2V IMPRESSION: Multifocal peribronchial opacities with peribronchial thickening in both lungs in keeping with atypical pneumonia. Electronically signed by: Kiran Cotter MD 11/29/2024 11:08 AM EDT Discharge Plan Discharge Clinical Impression: Pneumonia Patient Disposition: Home, Self-Care Instructions: Pneumonia (ED) Additional Instructions: EKG is normal. Your testing for flu and COVID are negative. Alternate Motrin and Tylenol for pain or fever Take the antibiotics as prescribed Use albuterol 2 puffs every 4 hours as needed at home with a spacer I also prescribed you a medication help with cough. If you need something additionally at home you may use a tbsp of honey Return for any increasing shortness of breath, worsening chest pain or any other concerning symptoms they would like to be evaluated for Prescriptions: New amoxicillin-pot clavulanate 875-125 mg tablet 1 tab PO BID Qty: 14 0RF benzonatate 200 mg capsule 200 mg PO TID PRN (Reason: cough) Qty: 21 0RF No Action meclizine 25 mg tablet 25 mg PO DAILY PRN (Reason: dizziness) Qty: 14 0RF cefuroxime axetil 250 mg tablet 250 mg PO BID 5 Days Qty: 10 0RF Referrals: Nicanor Miles MD [Physician, Internal Medicine] Interventions: ED Discharge Assessment Last Done: 11/29/24 11:58 Discharge Date/Time: 11/29/24 11:59 Print Language: Romanian
[2024-11-29 11:32] LABS: COVID-19 Test Negative (Negative); IDNOW Serial# 55D5AD1C; IDNOW Serial# 58CA691E; Influenza B2 Negative (Negative)
[2024-11-29 11:58] VITALS: BP 136/78; PULSE 97; RESP 18; TEMP 36.7; O2SAT 96
== END 2024-11-29 11:59 | disposition home or self-care (01) ==
LOC: HO.ED 11:49
PROVIDERS: Nurse Practitioner Family; Emergency Provider Emergency Medicine; PCP Nurse Practitioner Family
DX: U07.1 COVID-19 (principal); J18.9 Pneumonia, unspecified organism; R07.89 Other chest pain; R05.9 Cough, unspecified; Z79.899 Other long term (current) drug therapy
CPT/HCPCS: 71046; 87502; 87635; 93005; 99283

== ENCOUNTER → 2024-11-29 10:21 | Outpatient (BNV) | payer BC, MEDICARE, SELFPAY | PROVIDERS: Emergency Provider Emergency Medicine; PCP Nurse Practitioner Family; Visit Provider Internal Medicine Cardiovascular Disease | DX: R00.0 Tachycardia, unspecified (principal) | CPT/HCPCS: 93010 ==

== ENCOUNTER → 2024-11-29 10:42 | Outpatient (BNV) | payer BC, MEDICARE, SELFPAY | PROVIDERS: Emergency Provider Emergency Medicine; PCP Nurse Practitioner Family; Visit Provider Radiology Diagnostic Radiology | DX: U07.1 COVID-19 (principal); J12.82 Pneumonia due to coronavirus disease 2019 | CPT/HCPCS: 71046 ==